=== PATIENT | female | born 1960 | race Caucasian/White ===

== ENCOUNTER 2018-09-18 17:40 | Observation (INO) ==
[2018-09-18] MEDS ORDERED: Acetaminophen 325 MG TABLET PO PRN (20:47)
[2018-09-18] MEDS ORDERED: Ondansetron 4 MG/2 ML VIAL IVP PRN (20:48)
[2018-09-18 21:38] LABS: Basophils # 0.1 K/mcL (0.0-0.2); Basophils % 0.5 %; Eosinophils % 0.2 %; Hematocrit 46.1 % (35.3-44.9); Hemoglobin 14.9 g/dL (11.5-15.4); Immature Granulocytes % 0.3 % (0-4); Lymphocytes # 1.8 K/mcL (0.6-4.6); Lymphocytes % 17.6 %; Mean Corpuscular HGB Conc 32.3 g/dL (31.6-35.5); Mean Corpuscular Hemoglobin 30.4 pg (28.0-33.3); Mean Corpuscular Volume 94.1 fL (83.0-100.0); Mean Platelet Volume 10.1 fL (9.4-12.4); Monocytes # 0.6 K/mcL (0.0-1.3); Monocytes % 6.1 %; Neutrophils # 7.8 K/mcL (1.6-8.9); Platelet Count 218 K/mcL (140-400); Red Cell Distribution Width 12.5 % (11.5-14.5); Segmented Neutrophils % 75.3 %; White Blood Count 10.3 K/mcL (4.3-11.1)
[2018-09-18 21:46] LABS: INR 0.9; Prothrombin Time 10.2 Seconds (9.4-12.1)
[2018-09-18 21:48] LABS: Activated Partial Thrombo Time 32.3 Seconds (26.0-36.0)
[2018-09-18 21:59] LABS: Alanine Aminotransferase 39 Units/L (7-52); Albumin 4.8 g/dL (3.5-5.7); Albumin/Globulin Ratio 1.5 (1.1-2.2); Alkaline Phosphatase 74 Units/L (34-104); Aspartate Amino Transferase 46 Units/L (13-39); BUN/Creatinine Ratio 19 (6-26); Bilirubin,Direct 0.2 mg/dL (0.0-0.2); Bilirubin,Indirect 0.4 mg/dL (0.0-1.2); Bilirubin,Total 0.6 mg/dL (0.3-1.0); Blood Urea Nitrogen 19 mg/dL (6-20); Calcium 9.2 mg/dL (8.6-10.3); Carbon Dioxide 22 mEq/L (23-29); Chloride 104 mEq/L (98-107); Globulin 3.2 g/dL (2.4-3.5); Glucose 92 mg/dL (70-105); Magnesium 2.5 mg/dL (1.6-2.6); Osmolality,Calculated 280 (280-300); Potassium 3.7 mEq/L (3.5-5.1); Sodium 134 mEq/L (136-145); eGFR For African Americans > 60 (> 60); eGFR For Non-African Americans 57 (> 60)
[2018-09-18] MEDS: Ringers Solution, Lactated 1,000 ML IVC SCH (22:02)
[2018-09-18] MEDS: Ketorolac 30 MG/ML VIAL IVP PRN (23:53)
[2018-09-19] MEDS ORDERED: Topiramate 100 MG TABLET PO SCH ×2 (00:33→09:00)
[2018-09-19 01:37] LABS: Bilirubin,Urine Negative (Negative); Blood,Urine Small (Negative); Clarity,Urine Clear (Clear); Color,Urine Yellow (Yellow); Glucose,Urine (UA) Normal (Normal); Ketones,Urine Negative (Negative); Leukocyte Esterase,Urine Negative (Negative); Nitrite,Urine Negative (Negative); Protein,Urine Negative (Neg-Trace); Specific Gravity,Urine 1.008 (1.010-1.025); Urobilinogen,Urine Normal (Normal)
[2018-09-19 01:38] LABS: Bacteria,Urine None Seen per hpf (None-Few); Hyaline Casts,Urine None Seen per lpf (None-Few); RBC,Urine 0-3 per hpf (0-3); Squamous Epithelial Cell,Urine Moderate per lpf (None-Few); WBC,Urine 0-3 per hpf (0-3)
[2018-09-19] MEDS: Acetaminophen/Butalbital/CaffeineTABLET PO PRN ×2 (03:03→13:46)
[2018-09-19] MEDS: Ringers Solution, Lactated 1,000 ML IVC SCH (05:38)
[2018-09-19] MEDS: Ketorolac 30 MG/ML VIAL IVP PRN ×2 (07:58→17:24)
[2018-09-19] MEDS ORDERED: Isovue-300 50ML VIAL ONE (15:05)
[2018-09-19] MEDS ORDERED: *HR* FentaNYL (PF) 100 MCG/2 ML VIAL ONE (15:11)
[2018-09-19] MEDS ORDERED: Ondansetron 4 MG/2 ML VIAL ONE (16:06)
[2018-09-19] MEDS ORDERED: *HR* Propofol 200 MG/20 ML VIAL IVP ONE (16:06)
[2018-09-19] MEDS ORDERED: Lidocaine -MPF 2% 2 ML VIAL ONE (16:06)
[2018-09-19] MEDS ORDERED: Dexamethasone 4 MG/ML VIAL ONE (16:06)
[2018-09-19] MEDS ORDERED: *HR* Midazolam HCl 2 MG/2 ML VIAL ONE (16:06)
[2018-09-19 17:13] VITALS: BP 124/66
== END 2018-09-19 18:30 | disposition home or self-care (01) ==
LOC: 3NENU → SUATTDRO 20:05
PROVIDERS: ADMIT Internal Medicine; ATTEND Internal Medicine